=== PATIENT | male | born 2000 | race Caucasian/White ===

== ENCOUNTER 2023-12-31 03:50 | Emergency (ER) | payer SELFPAY ==
[~2023-12-31] VITALS: Ht 172.7 cm; Wt 82.0 kg
[2023-12-31 04:11] VITALS: BP 117/72; TEMP 98.4; O2SAT 99
[2023-12-31 04:12] VITALS: PULSE 75; RESP 20
== END 2023-12-31 08:35 | disposition home or self-care (01) ==
LOC: ER 03:50
DX: S83.92XA Sprain of unspecified site of left knee, initial encounter (principal); W10.8XXA Fall (on) (from) other stairs and steps, initial encounter; Y93.89 Activity, other specified; Y92.89 Other specified places as the place of occurrence of the external cause; Y99.8 Other external cause status
CPT/HCPCS: 73562; 99283